=== PATIENT | female | born 1950 ===

== ENCOUNTER 2022-11-17 05:22 | Emergency (ER) | payer MEDICARE, SELFPAY ==
[2022-11-17 05:30] VITALS: BP 177/102; PULSE 70; RESP 16; TEMP 36.6; O2SAT 100; BMI 25.8
[2022-11-17 05:45] VITALS: BP 171/94; PULSE 74; RESP 16; TEMP 37; O2SAT 97
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
--- NOTE | 2022-11-17 06:14 | PC.NURSE ---
swelling observed on L ankle CMS pos/intact, pedal pulses normal, warm to touch pt denies any numbness/tingling
--- NOTE | 2022-11-17 06:17 | ED.LOWEXIN ---
HPI - Extremity Injury (Lower) General Chief Complaint: Fall Stated Complaint: Foot injury Time Seen by Provider: 11/17/22 05:43 Source: patient Mode of arrival: ambulatory History of Present Illness HPI Narrative: 72-year-old female who states that she was walking in [employer] yesterday morning and slipped resulting in a twisting of her left ankle that she has some difficulty walking on all day yesterday, she did attempt to elevate and apply ice but states this morning she went to come in to have it further evaluated. Related Data Allergies Allergy/AdvReac Type Severity Reaction Status Date / Time No Known Allergies Allergy Unverified 01/28/20 15:15 Review of Systems Review of Systems: Pertinent positives and negatives as stated in HPI [facility] Past Medical History Source: nursing notes reviewed Social History Social History Alcohol intake: never Smoked in Last 30 Days: No Use of substances other than those prescribed or required for medical reasons: No Advance Directives: No Advance Directives Information Provided: No Physical Exam Vital Signs: Vital Signs: Last Vital Signs Temp 98.6 F 11/17/22 05:45 Pulse 74 11/17/22 05:45 Resp 16 11/17/22 05:45 BP 171/94 H 11/17/22 05:45 Pulse Ox 97 11/17/22 05:45 O2 Del Method Room Air 11/17/22 05:45 BMI result Body Mass Index 25.8 VITAL SIGNS: Reviewed. GENERAL: Well developed, well nourished, in no acute distress. HEAD: Normocephalic/atraumatic EYES: PERRLA, EOMI LUNGS: Normal breath sounds. No adventitious sounds or accessory muscle use. SpO2<97> CARDIOVASCULAR: Regular rate and rhythm without noted murmurs ABDOMEN: Soft, non-tender, non-distended with bowel sounds. MUSCULOSKELETAL: No tenderness, deformities, or effusions noted on gross inspection. EXTREMITIES: No cyanosis, clubbing or edema; LEFT ANKLE: There is no deformity, scant edema, no midfoot tenderness, no medial malleolus tenderness to palpation, minimal tenderness to palpation over lateral malleolus otherwise neurovascular is intact SKIN: Inspection of the skin reveals no rashes NEUROLOGIC: Alert and oriented x 4. Strength and sensation to light touch were grossly intact x 4. Medical Decision Making Medical Decision Making [facility] Narrative: 72-year-old female with history and clinical presentation molar consistent with ankle sprain then fracture or dislocation, this was further corroborated by x-ray results which are negative for fracture or dislocation. Patient received combination analgesics, the left ankle was stabilized with an Silviano wrap and patient was discharged home. Differential Diagnosis Please see the discussion above Radiology Impression Radiologist Impression: No fracture, otherwise my interpretation is in agreement with radiology's impression. Discharge Plan Discharge Clinical Impression: Ankle sprain Patient Disposition: Home, Self-Care Instructions: Ankle Sprain (ED), R.I.C.E. Treatment (ED) Additional Instructions: 1. Follow-up with your primary care provider for re-evaluation. I recommend [id number] Tylenol/ibuprofen as needed for pain control. Apply ice to unexposed skin for 10-15 minutes, 3 to 4 times a day as possible. Return to the ER for any worsening symptoms.
--- NOTE | 2022-11-17 06:30 | PC.NURSE ---
ice pack applied to L ankle/foot for 15 minutes
--- NOTE | 2022-11-17 06:34 | PC.NURSE ---
michael bandage applied to L foot/ankle per provider's orders
--- NOTE | 2022-11-17 06:37 | PC.NURSE ---
Discharge instructions given and explained to pt No apparent distress aox4 All of pt's questions answered Ambulates safely and independently
== END 2022-11-17 06:38 | disposition home or self-care (01) ==
PROVIDERS: Emergency Provider Student in an Organized Health Care Education/Training Program; PCP Family Medicine
DX: S93.402A Sprain of unspecified ligament of left ankle, initial encounter (principal); X50.1XXA Overexertion from prolonged static or awkward postures, initial encounter; Y93.89 Activity, other specified; Y92.512 Supermarket, store or market as the place of occurrence of the external cause; Y99.9 Unspecified external cause status
CPT/HCPCS: 73610; 73620; 99283; 99284

== ENCOUNTER 2022-12-21 15:26 | Emergency (ER) | payer OTHER, SELFPAY ==
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
[2022-12-21 16:42] VITALS: BP 166/101; PULSE 74; RESP 16; TEMP 37; O2SAT 98; BMI 24.0
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
== END 2022-12-21 18:26 | disposition home or self-care (01) ==
PROVIDERS: Emergency Provider Emergency Medicine; PCP Family Medicine
DX: S06.0X0A Concussion without loss of consciousness, initial encounter (principal); S13.4XXA Sprain of ligaments of cervical spine, initial encounter; V43.52XA Car driver injured in collision with other type car in traffic accident, initial encounter; Y93.89 Activity, other specified; Y92.481 Parking lot as the place of occurrence of the external cause; Y99.9 Unspecified external cause status
CPT/HCPCS: 72040; 99282; 99283

== ENCOUNTER → 2023-01-23 09:05 | Outpatient (BNVA) | payer SELFPAY | PROVIDERS: PCP Family Medicine; Visit Provider Physician Assistant ==

== ENCOUNTER 2023-10-05 17:43 | Emergency (ER) | payer OTHER, SELFPAY ==
--- NOTE | ~2023-10-05 | XR_ITS ---
History: Pain. Exams: Left foot 2 views left ankle 3 views FINDINGS: Comparison made to baseline 11/17/2022. Mild degeneration the first metatarsophalangeal joint. No erosions. No soft tissue calcifications. Monckeberg calcification suggesting diabetes. No evidence of any neuropathic arthropathy. No periosteal formation. Ankle mortise anatomic. Subtalar joint intact. No calcaneal plantar spurs spurring. Midfoot articulations preserved. XR/XR ankle LT min 3V IMPRESSION: Mild degenerative changes first metatarsophalangeal joint. No evidence of any neuropathic arthropathy. No fracture
--- NOTE | ~2023-10-05 | XR_ITS ---
History: Pain. Exams: Left foot 2 views left ankle 3 views FINDINGS: Comparison made to baseline 11/17/2022. Mild degeneration the first metatarsophalangeal joint. No erosions. No soft tissue calcifications. Monckeberg calcification suggesting diabetes. No evidence of any neuropathic arthropathy. No periosteal formation. Ankle mortise anatomic. Subtalar joint intact. No calcaneal plantar spurs spurring. Midfoot articulations preserved. XR/XR foot LT min 3V IMPRESSION: Mild degenerative changes first metatarsophalangeal joint. No evidence of any neuropathic arthropathy. No fracture
[2023-10-05 17:50] VITALS: BP 141/95; PULSE 87; RESP 20; TEMP 36.8; O2SAT 98; BMI 23.9
--- NOTE | 2023-10-05 17:50 | ED_ITS ---
HPI - Extremity Injury (Lower) General Chief Complaint: Extremity Injury, Lower Stated Complaint: ankle inj, [place] Related Data Previous Rx's ?Medication ?Instructions ?Recorded cyclobenzaprine 10 mg tablet 10 mg PO BEDTIME PRN muscle spasm 12/21/22 #7 tabs lidocaine 5 % topical patch 1 patch topical DAILY PRN pain #15 12/21/22 ea naproxen 500 mg tablet 500 mg PO BID #14 tabs 12/21/22 Allergies Allergy/AdvReac Type Severity Reaction Status Date / Time No Known Allergies Allergy Verified 10/06/23 00:18 [facility] Social History Social History Alcohol intake: never Advance Directives: No Advance Directives Information Provided: No Do you have a plan to hurt others: No Plan Physical Exam Vital Signs: Vital Signs: Last Vital Signs Temp 97.3 F 10/05/23 20:12 Pulse 70 10/05/23 20:12 Resp 14 10/05/23 20:12 BP 154/86 H 10/05/23 20:12 Pulse Ox 99 10/05/23 20:12 O2 Del Method Room Air 10/05/23 20:12 BMI result Body Mass Index 23.9 Course Course Course Narrative: This is an RME: Additional HPI, ROS, PE not included below will be deferred to primary provider. RME assessment and note performed by: Araceli Howe PA-C This is a [id number]-female presenting to the ER with complaints of left ankle/foot pain since today. Reporting she accidentally injured herself after slip and fall. Reporting ankle and foot pain. Plan: xrays ordered Reevaluation(s) Reevaluation #1: Patient left without completing treatment. Medications Administered Discontinued Medications Generic Name Dose Route Start Last Admin Trade Name Freq PRN Reason Stop Dose Admin Acetaminophen 650 mg 10/05/23 20:14 10/05/23 20:16 Acetaminophen 325 Mg Tablet PO 10/05/23 20:15 650 mg ONCE ONE Administration Discharge Plan Discharge Clinical Impression: Ankle pain Patient Disposition: Left W/O Completing Treatment Prescriptions: No Action cyclobenzaprine 10 mg tablet 10 mg PO BEDTIME PRN (Reason: muscle spasm) Qty: 7 0RF naproxen 500 mg tablet 500 mg PO BID Qty: 14 0RF lidocaine 5 % adhesive patch,medicated 1 patch topical DAILY PRN (Reason: pain) Qty: 15 0RF Rx Instructions: leave on most painful area for up to 12 hrs Discharge Date/Time: 10/05/23 22:43
[2023-10-05 20:12] VITALS: BP 154/86; PULSE 70; RESP 14; TEMP 36.3; O2SAT 99
[2023-10-05] MEDS: Acetaminophen 325 MG TABLET 650 MG PO (20:16)
== END 2023-10-05 22:43 | disposition left against medical advice (07) ==
PROVIDERS: Emergency Provider Emergency Medicine; PCP Family Medicine
DX: M25.572 Pain in left ankle and joints of left foot (principal); Z53.21 Procedure and treatment not carried out due to patient leaving prior to being seen by health care provider
CPT/HCPCS: 73610; 73630; 99282; 99283

== ENCOUNTER 2023-10-06 00:04 | Emergency (ER) | payer OTHER, SELFPAY ==
[2023-10-06 00:16] VITALS: BP 148/91; PULSE 76; RESP 14; TEMP 36.4; O2SAT 99; BMI 24.1
--- NOTE | 2023-10-06 08:17 | ED_ITS ---
HPI - Extremity Injury (Lower) General Chief Complaint: Extremity Injury, Lower Stated Complaint: results for xray on ankle Time Seen by Provider: 10/06/23 08:07 Source: patient Mode of arrival: ambulatory History of Present Illness ED Provider: Dr Dean HPI Narrative: 73-year-old female reports [place] and describes pain as 9/10. Related Data Previous Rx's ?Medication ?Instructions ?Recorded cyclobenzaprine 10 mg tablet 10 mg PO BEDTIME PRN muscle spasm 12/21/22 #7 tabs lidocaine 5 % topical patch 1 patch topical DAILY PRN pain #15 12/21/22 ea naproxen 500 mg tablet 500 mg PO BID #14 tabs 12/21/22 Allergies Allergy/AdvReac Type Severity Reaction Status Date / Time No Known Allergies Allergy Verified 10/06/23 00:18 Review of Systems Review of Systems: Pertinent positives and negatives as stated in [facility] Past Medical History Source: nursing notes reviewed Social History Social History Alcohol intake: never Advance Directives: No Advance Directives Information Provided: No Do you have a plan to hurt others: No Plan Physical Exam Vital Signs: Vital Signs: Last Vital Signs Temp 97.6 F 10/06/23 00:16 Pulse 76 10/06/23 00:16 Resp 14 10/06/23 00:16 BP 148/91 H 10/06/23 00:16 Pulse Ox 99 10/06/23 00:16 O2 Del Method Room Air 10/06/23 00:16 BMI result Body Mass Index 24.1 VITAL SIGNS: Reviewed. GENERAL: Well developed, well nourished, in no acute distress. HEAD: Normocephalic/atraumatic EYES: PERRLA, EOMI LUNGS: Normal breath sounds. No adventitious sounds or accessory muscle use. SpO2<99> CARDIOVASCULAR: Regular rate and rhythm without noted murmurs ABDOMEN: Soft, non-tender, non-distended with bowel sounds. MUSCULOSKELETAL: No tenderness, deformities, or effusions noted on gross inspection. EXTREMITIES: No cyanosis, clubbing or edema. LEFT ANKLE/FOOT: No appreciable swelling noted. SKIN: Inspection of the skin reveals no rashes NEUROLOGIC: Alert and oriented x 4. Strength and sensation to light touch were grossly intact x 4. Medical Decision Making Medical Decision Making [facility] Narrative: 73-year-old female with history and clinical presentation, DDX: Fracture, dislocation, sprain I reviewed images and there is no evidence of fracture or dislocation, Silviano wrap was applied, and is well controlled at this time and patient was discharged. Differential Diagnosis Differential Diagnoses: The differential diagnosis associated with the present ation includes Please see the discussion above Admission/Observation Consideration of admission/observation: Escalation of care including admission/observation considered Please see the discussion above Radiology Impression Discussion of test interpretation with radiology: I have reviewed the radiologist's reading. Radiologist Impression: Please see the discussion above Discharge Plan Discharge Clinical Impression: Ankle sprain and strain Patient Disposition: Home, Self-Care Instructions: Ankle Sprain (ED), How to Use an Elastic Bandage (ED), R.I.C.E. Treatment (ED) Additional Instructions: Recommend [id number] Tylenol/ibuprofen as needed for pain control. Prescriptions: No Action cyclobenzaprine 10 mg tablet 10 mg PO BEDTIME PRN (Reason: muscle spasm) Qty: 7 0RF naproxen 500 mg tablet 500 mg PO BID Qty: 14 0RF lidocaine 5 % adhesive patch,medicated 1 patch topical DAILY PRN (Reason: pain) Qty: 15 0RF Rx Instructions: leave on most painful area for up to 12 hrs Interventions: ED Discharge Assessment Last Done: 10/06/23 08:35 Print Language: Cuban
[2023-10-06 08:35] VITALS: BP 148/91; PULSE 76; RESP 14; TEMP 36.4; O2SAT 99
== END 2023-10-06 08:36 | disposition home or self-care (01) ==
LOC: HO.ED 08:17
PROVIDERS: Emergency Provider Student in an Organized Health Care Education/Training Program
DX: S93.402A Sprain of unspecified ligament of left ankle, initial encounter (principal); S96.912A Strain of unspecified muscle and tendon at ankle and foot level, left foot, initial encounter; X50.1XXA Overexertion from prolonged static or awkward postures, initial encounter; Y93.9 Activity, unspecified; Y92.59 Other trade areas as the place of occurrence of the external cause; Y99.9 Unspecified external cause status
CPT/HCPCS: 99282

== ENCOUNTER 2024-06-24 11:00 | Outpatient (REF) | payer OTHER, SELFPAY ==
--- OUTSIDE RECORDS SUMMARY | 2024-06-24 12:51 | XMS_ITS | Encounter Summary ---
Author Organization [employer] Address [address] [place] [address] Care Team Providers Care Multimedia Authoring Specialist Name Role Phone Arlene Cronin MD Primary Care Provider [phone] Encounter Details Date Type Department Care Team (Late st Contact Info) Description 06/24/2024 9:45 AM EST Office Visit [facility] [address] [place], [place] [phone] Arlene Cronin MD [address] [place], [place] [id number] Primary hypertension (Primary Dx); External hemorrhoids; Tubular adenoma of colon; Strain of neck muscle, sequela; Vitamin D deficiency; Dyslipidemia Social History Tobacco Use Types Packs/Day Years Used Date Smoking Tobacco: Every Day Cigarettes Passive Smoke Exposure: Current Smokeless Tobacco: Never Depression Answer Date Recorded Patient Health Questionnaire-9 Score 0 06/24/2024 Patient Health Questionnaire-9 Score 0 06/24/2024 Last PHQ-9: Questionnaire Data Not on file 0 06/24/2024 Housing Stability Answer Date Recorded What is your housing situation today? I have terrence ballard 07/23/[address] you li ve. Do you have problems with any of the following? None of the above 07/23/2023 Food Insecurity Answer Date Recorded Within the past 12 months, y ou worried that your food would run out before you got money to buy more: Never True 07/23/2023 Within the past 12 months,th e food you bought just didn't last and you didn't have enough money to get more: Never True 04/2024 Transportation Answer Date Recorded In the past 12 months, has l ack of transportation kept you from medical appts, meetings, work or from getting things needed for daily living? No 07/23/2023 Utilities Answer Date Recorded In the past 12 months, has t he electric, gas, oil or water company threatened to shut off services in your home? No 07/23/2023 Depression Answer Date Recorded Patient Health Questionnaire-2 Score 0 06/24/2024 Internet Access Answer Date Recorded Internet Access Q1 No 06/11/2024 Internet Access Q2 I do not want or need it 05/15 Comments Unknown Sex and Gender Information Value Date Recorded Sex Assigned at Female 03/12/2022 10:16 AM EDT Legal Sex Female 10:16 AM EDT Gender Identity Female 03/12/2022 10:16 AM EDT Sexual Orientation Straight 03/12/2022 10 :16 AM EDT documented as of this encounter Last Filed Vital Signs Vital Sign Reading Time Taken Comments Blood Pressure 150/90 06/24/2024 10:38 AM EST Pulse 78 06/24/2024 10:17 AM EST Temperature 36.2 ??C (97.1 ??F) 06/24/2024 1 0:17 AM EST Respiratory Rate 15 06/24/2024 10:1 7 AM EST Oxygen Saturation 99% 06/24/2024 10: 17 AM EST Inhaled Oxygen Concentration - - Weight 68.9 kg (151 lb 12.8 oz) 025 10:17 AM EST Height - - Body Mass Index 25.26 07/31/2023 9:16 AM EDT documented in this encounter Miscellaneous Notes * Assessment & Plan Note - Arlene Cronin MD - 06/23/2024 12:46 PM ESTAssociated Problem(s): Health care maintenance - physical exam with PCP on Cancer screening: - colon - breast - cervix Bone health - DEXA Dental Vision Hearing Driving HCP / MOLST documented in this encounter Plan of Treatment Not on file documented as of this encounter Visit Diagnoses Diagnosis Primary hypertension- Primary Unspecified essential hypertension External hemorrhoids External hemorrhoids without mention of complication Tubular adenoma of colon Benign neoplasm of colon Strain of neck muscle, sequela Vitamin D deficiency Dyslipidemia Other and unspecified hyperlipidemia documented in this encounter Additional Health Concerns Assessment Noted Time PHQ-9 Depression Total Score: 0 06/24/19 25 10:16 AM EST documented as of this encounter Care Teams Multimedia Authoring Specialist Relationship Specialty Start Date End Date Arlene Cronin MD [address] [place] [address] PCP - General Family Medicine 05/13/18 documented as of this encounter
--- OUTSIDE RECORDS SUMMARY | 2024-06-24 12:51 | XMS_ITS | Encounter Summary ---
Author Organization [employer] Address [address] [facility] 7t [place] [address] Care Team Providers Care Beading Installer Name Role Phone Arlene Cronin MD Primary Care Provider [phone] Reason for Visit * Reason Onset Date Comments chart prep 06/18/2024 Encounter Details Date Type Department Care Team ([facility] st Contact Info) Description 06/18/2024 Telephone [facility] MEDICINE [address] [place] [address] Ely Dumont MA chart prep Social History Tobacco Use Types Packs/Day Years Used Date Smoking Tobacco: Every Day Cigarettes Passive Smoke Exposure: Current Smokeless Tobacco: Never Housing Stability Answer Date Recorded What is your housing situation today? I have terrencemeagan ballard 07/23/[address] you [...] Answer Date Recorded Patient Health Questionnaire-2 Score 2 06/12/2022 Internet Access Answer Date Recorded Internet Access [...] AM EDT documented as of this encounter Miscellaneous Notes * Telephone Encounter - Ely Dumont MA - 06/18/2024 2:48 PM EST .Chart Prep Labs: 07/31/23 lab not done Images: not applicable Vaccines due: Covid Due, Tdap Due, Flu Due, and Shingles in pharmacy Due Referrals: Orthopedics requested Screenings: Colonoscopy Overdue care gaps: Sbirt, PHQ-9, and lon-7 documented in this encounter Plan of Treatment Not on file documented as of this encounter Visit Diagnoses Not on filedocumented in this encounter Care Teams Beading Installer Relationship Specialty Start Date End Date Arlene Cronin MD [address] [place] [address] PCP - General Family Medicine 05/13/18 documented as of this encounter
--- OUTSIDE RECORDS SUMMARY | 2024-06-24 12:51 | XMS_ITS | Encounter Summary ---
Author Organization [employer] Address [address] [facility] [address] 7t [place] [address] Care Team Providers Care Assistant Designer Name Role Phone Arlene Cronin MD Primary Care Provider Encounter Details Date Type Department Care Team (Latest Contact Info) Description 06/24/2024 Travel Social History Tobacco Use Types Packs/Day Years [...] AM EDT documented as of this encounter Plan of Treatment Not on file documented as of this encounter Visit Diagnoses Not on filedocumented in this encounter Additional Health Concerns Assessment Noted Time PHQ-9 Depression Total Score: 0 06/24/19 25 10:16 AM EST documented as of this encounter Care Teams Assistant Designer Relationship Specialty Start Date End Date Arlene Cronin MD [address] [place] [address] PCP - General Family Medicine 05/13/18 documented as of this encounter
--- OUTSIDE RECORDS SUMMARY | 2024-06-24 12:51 | XMS_ITS | Encounter Summary ---
Author Organization [employer] Address [address] [place] [address] 7t [place] [address] Care Team Providers Care International Recruiter Name Role Phone Arlene Cronin MD Primary Care Provider [phone] Reason for Referral * Consultation (Routine) - Closed Specialty Diagnoses / Procedures Referred By Apoorva kwan Referred To Contact Orthopaedic Surgery Diagnoses Closed fracture of left foot, sequela Arlene Cronin MD [address] [place] [address] Phone: tel: fax: [facility] [address] [place] [address] [place] [address] Phone: tel: fax: Referral ID Status Reason Start Date Expiration Date V isits Requested Visits Authorized [id number] Closed Specialty Services Required 06/05/2024 06/05/2025 1 1 Encounter Details Date Type Department Care Team (Late st Contact Info) Description 06/05/2024 Orders Only [facility] MEDICINE [address] [place], [place] [phone] Arlene Cronin MD [address] [place], [place] [phone] Closed fracture of left foot, sequela (Primary Dx) Social History Tobacco Use Types Packs/Day Years [...] Recorded Patient Health Questionnaire-2 Score 2 06/12/2022 Comments Unknown Sex and Gender Information Value Date Recorded Sex Assigned at Female 03/12/2022 10:16 AM EDT Legal Sex Female 10:16 AM EDT Gender Identity Female 03/12/2022 10:16 AM EDT Sexual Orientation Straight 03/12/2022 10 :16 AM EDT documented as of this encounter Plan of Treatment Scheduled Referrals Name Type Priority Associated Diagnoses Order Schedule Referral to Orthopaedic Surgery Outpatient Referral Routine Closed fracture of left foot, sequela Expected: 06/05/2024 (Approximate), Expires: 06/05/2025 documented as of this encounter Visit Diagnoses Diagnosis Closed fracture of left foot, sequela- Primary documented in this encounter Care Teams International Recruiter Relationship Specialty Start Date End Date Arlene Cronin MD [address] [place] [address] PCP - General Family Medicine 05/13/18 documented as of this encounter
--- OUTSIDE RECORDS SUMMARY | 2024-06-24 12:51 | XMS_ITS | Encounter Summary ---
Author Organization [employer] Address [address] [facility] 7t [place] [address] Care Team Providers Care Slp Teacher Name Role Phone Arlene Cronin MD Primary Care Provider [phone] Reason for Visit * Reason Comments Pre-visit Planning SDOH Screening negat pieter and Tobacco screening negative Encounter Details Date Type Department Care Team ([facility] st Contact Info) Description 06/11/2024 Patient Outreach [facility] MEDICINE [address] [place], [place] [phone] Arlene Cronin MD [address] [place], [place] [phone] Pre-visit Planning (SDOH Screening negative and Tobacco screening negative) Social History Tobacco Use Types Packs/Day Years [...] AM EDT documented as of this encounter Progress Notes * Mildred Soto - 06/11/2024 9:47 AM EST SIMONE Mchugh placed successful outbound call to patient for pre-visit planning. Patient name and confirmed. Patient confirms appt date and time, and has transportation arrangements. Biggest concern for appointment at this time is no concerns. Patient advised to bring to appointment a photo id and insurance card. Appropriate screenings completed in anticipation of appointment. documented in this encounter Plan of Treatment Not on file documented as of this encounter Visit Diagnoses Not on filedocumented in this encounter Care Teams Slp Teacher Relationship Specialty Start Date End Date Arlene Cronin MD [address] [place] [address] PCP - General Family Medicine 05/13/18 documented as of this encounter
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
--- OUTSIDE RECORDS SUMMARY | 2024-06-24 12:51 | XMS_ITS | Patient Health Record ---
Author Organization [facility] Address [address] [place] [address] Care Team Providers Care Instrumentation Engineering Technician Name Role Phone Roseanne CARMEN, Arlene Primary Care Provider Romel Gan Jr Unavailable REASON FOR REFERRAL No Information MEDICATIONS Medication SIG (Take, Route, Frequency, Duration) Notes Start Date End Date Status Colyte with Flavor Packs 240 GM As direc aldo Orally Over the specified time. for 1 day(s) 01/21/2019 Active Aspir-81 81 MG Orally Activ e hydroCHLOROthiazide 25 MG 1 capsule in t he morning Orally Once a day Active IMMUNIZATIONS Vaccine Route Administration Date Status Comme nts Influenza Unknown 01/21/2019 Refused SOCIAL HISTORY Sex Assigned At : Social History Observation Description Sex Assigned At Unknown PROBLEMS Problem Type ICD Code Onset Dates Problem Status W/U Status Risk SNOMED Code Notes Problem Rectal bleeding (569.3) Active confirmed Rectal bleeding (38049748) Problem Constipation, unspecified constipation type (K59.00) Active confirmed 05796936 Problem Colon cancer screening (Z12.11) Active confirmed 778222082 Problem Long-term use of aspirin therapy (Z79.82) Active confirmed 939991991 PLAN OF TREATMENT Future Test Test Name Order Date COLONOSCOPY 12/11/2013 COLONOSCOPY 01/21/2019 Next Appt Details Provider Name:Swapnil Valencia , 07/16/2024 09:00:00 AM, [address], [address], [place], [address], Insurance Providers Payer Name Payer Address Payer Phone Subscriber Number Group Number Insured Name Patient Relationship to Insured Coverage Start Date Coverage End Date [facility] [address] [address] [place] [address] [id number] CHENCHO MCMILLAN Self - patient is the insured MEDICAL (GENERAL) HISTORY Medical History History ICD Code colon polyps, last colonoscopy 04/02/14 hypertension back pain Rectal bleeding arthritis Surgical History Surgery Date(Month/Year)
--- OUTSIDE RECORDS SUMMARY | 2024-06-24 12:52 | XMS_ITS | Encounter Summary ---
Author Organization [employer] Address [address] [place] [address] 7t [place] [address] Care Team Providers Care Junior Engineer Name Role Phone Arlene Cronin MD Primary Care Provider [phone] Encounter Details Date Type Department Care Team (Late st Contact Info) Description 01/25/2023 Orders Only [facility] MEDICINE [address] [place] [address] Arlene Cronin MD [address] [place], [place] [phone] Injury of left ankle, sequela (Primary Dx) Social History Tobacco Use Types Packs/Day Years Used Date Smoking Tobacco: Every Day Cigarettes Passive Smoke Exposure: Current Smokeless Tobacco: Never Depression Answer Date Recorded Patient Health Questionnaire-2 [...] as of this encounter Visit Diagnoses Diagnosis Injury of left ankle, sequela- Primary documented in this encounter Care Teams Junior Engineer Relationship Specialty Start Date End Date Arlene Cronin MD [address] [place], [place] [phone] PCP - General Family Medicine 05/13/18 documented as of this encounter
--- OUTSIDE RECORDS SUMMARY | 2024-06-24 12:52 | XMS_ITS | Encounter Summary ---
Author Organization [employer] Address [address] [place] [address] 7t [place] [address] Care Team Providers Care Retail Planner Name Role Phone Arlene Cronin MD Primary Care Provider [phone] Encounter Details Date Type Department Care Team (Late st Contact Info) Description 12/26/2022 Orders Only [facility] MEDICINE [address] [place], [place] [phone] Arlene Cronin MD [address] [place], [place] [phone] Neck pain (Primary Dx); Chronic back pain, unspecified back location, unspecified back pain laterality Social History Tobacco Use Types Packs/Day Years [...] as of this encounter Visit Diagnoses Diagnosis Neck pain- Primary Cervicalgia Chronic back pain, unspecified back location, unspecified back pain laterality documented in this encounter Care Teams Retail Planner Relationship Specialty Start Date End Date Arlene Cronin MD [address] [place], [place] [phone] PCP - General Family Medicine 05/13/18 documented as of this encounter
--- OUTSIDE RECORDS SUMMARY | 2024-06-24 12:52 | XMS_ITS | Continuity of Care Document ---
Author Organization [place] - [facility], MARIELOS [address] 1st Floor Address [address] [place] [address] Assessment No assessment recorded. Plan of Treatment Reminders Order Date Submit Date Provider Last Modified By Organization Details Last Modified Time Details Appointments RECHECK 15 2024 09:00A Jenna Rogers PA-C Not available Not available Not available Lab None recorded . Referral None recorded . Procedures None recorded . Surgeries None recorded . Imaging XR, ankle, 3 or more view [address] [place] [address] Office, [address], [address], [place], [address], 06/17/2024 11:43:25 Medication Orders lidocain e 5 % topical patch 2024 [id number], [address] [place], [place], [phone], 06/17/2024 11:43:25 Patient TargetsNo targets recorded. Patient InstructionsNo instructions recorded. Reason for Referral None Reported. Results Created Date Observation Date Name Description Value Unit Range Abnormal Flag Note LastModifiedBy Organization Detail LastModifiedTime 06/17/1906/17/2024 XR, ankle , 3 or more view http:/ [email or web address] ?Encry pted=s hAaTro YD8dLq bEUv6g %2BXZw aYqtaq 0bqfl% 2Fg9IQ a4ajBk vP9nXo QUaueC m3YtLR FvZlgJ JJ8mAn HZtai3 4h7947 AC0Kqb HmBUKW jKiQtr MwF INTERFACE [facility] Office [address] [facility] [address], [place], [address], 06/17/2024 09:14:49 06/17/1906/17/2024 XR, ankle , 3 or more view [email or web address] ?Encry pted=s hAaTro YD8dLq bEUv6g %2BXZw aYqtaq 0bqfl% 2Fg9IQ a4ajBk vP9nXo QUaueC m3YtLR FvZlgJ JJ8mAn HZtai3 2l2115 AC0Kqb HmBUKW jKiQtr MwF INTERFACE [facility] Office [address] [facility] [address], [place], [address], 06/17/2024 09:14:51 Result Notes None recorded. Problems Name Problem SNOMED Code Status Onset Date Resolution Date Notes Provider Name and Address Organization Details Recorded Time No complaints 301957515 Active Status : 'A'; Not Available [facility] 09:15:23 Problem Notes None recorded. Medical Equipment None Reported. Allergies No known drug allergies Medications Name Sig Start Date Stop Date Status Note LastModified by Organization Details LastModified Time cyclobenzaprin e 10 mg tablet TAKE 1 TABLET BY MOUTH AT BEDTIME NEEDED FOR MUSCLE SPASM active Not Available Not Available No t Available meloxicam 15 mg tablet TAKE 1 TABLET BY MOUTH EVERY DAY NEEDED active Not Available Not Available No t Available simvastatin 20 mg tablet active Not Available Not Available No t Available lidocaine 5 % topical patch active Not Available Not Availabl e Not Available amoxicillin 250 mg capsule TAKE 1 CAPSULE BY MOUTH FOUR TIMES DAILY active Not Available Not Available No t Available hydrochlorothi azide 25 mg tablet active Not Available Not Available Not Available naproxen 500 mg tablet TAKE 1 TABLET BY MOUTH TWICE DAILY active Not Available Not Available No t Available chlorhexidine gluconate 0.12 % mouthwash RINSE WITH 15ML BY MOUTH FOR 30 SECONDS THEN SPIT USE TWICE DAILY AFTER BRUSHING AND FLOSSING active Not Available Not Available No t Available Vitals Date Recorded Body height Body mass index (BMI) Body weight Provider Name and Address Organization Details Last Updated DateTime 06/17/2024 165.1 cm 24.5 kg/m2 46063.08 g MAYELIN IBANEZ [facility] 06/17/2024 09:03:15 Social History Question Answer Notes LastModified by Organizat ion Details LastModified Time Tobacco Smoking Status Never Smoker ELVIRA WATERMAN rohith [place] - [place] [facility] 11/08/2023 08:39:09 What Is Your Level Of Alcohol Consumption? None Information not available 11/08/2023 What Is Your Relationship Status? Single Information not available 11/08/2023 Do You Use Any Illicit Or Recreational Drugs? No Information not available 11/08/2023 Do You Or Have You Ever Used Any Other Forms Of Tobacco Or Nicotine? No Information not available 11/08/2023 Sex: Unknown Functional Status None recorded. Mental Status None recorded. Family History Nothing Reported. Medical History Condition Response Coronary Artery Disease N Anxiety/Depression N Emphysema N COPD N Pacemaker N Vascular Disease N Heart Trouble N Gastrointestinal Disease N Autoimmune disease N Orthotics N Arthritis N Blood Clot N Acid Reflux (GERD) N Cancer N Stroke N Circulation Problems N Rheumatoid Arthritis N Arrhythmia N Headaches N Fibromyalgia N Allergies/Hayfever N Breathing or lung disorders N Nerve Disorders N Thyroid Problems N Kidney/Bladder Problems N Anemia N Heart Attack ([place]) N Cholesterol N Diabetes N Bleeding Disorder N Seizures/Epilepsy N AIDS/HIV N Congestive Heart Failure (CHF) N Asthma N Peripheral Vascular Disease N Sleep Apnea N Hepatitis N Heart Disease N Pulmonary Embolism N Hypertension N Osteoporosis N Gynecological HistoryNo gynecological history recorded. Obstetrics History GPAL:G 0 P 0 0 0 0 Past Encounters Encounter ID Performer Location Encounter Start Date Encounter Closed Date Diagnosis/Indication Diagnosis SNOMED-CT Code Diagnosis ICD10 Code Diagnosis Note [id number] MIGUEL [place] 1[address] [place] [address] 06/17/2024 08:54:42 06/17/2024 12:01:32 Ankle pain 756464056 M25.572 Fracture o f distal end of fibula 177424508 S82.891A Health Concerns Section Related Observation LastModified by Organization Elizabeth curtis LastModified Time None Recorded Concern Status LastModified by Organization Details LastModified Time None Recorded Payers Encounter Date Sequence Insurance Name Policy Number Policy Campos Covered Member ID Campos Member ID Guarantor Name 06/17/2024 1 [facility] (MEDICARE REPLACEMENT/A DVANTAGE - HMO) Qi Candelario [id number] Qi Candelario 06/17/2024 2 [place] [facility] Qi Candelario [id number] Qi Candelario Notes Date Note Type Note Provider Name and Address Organization Details Recorded Time 06/17/2024 text/html I am seeing this patient under the supervision of Dr. John, who was available but who did not see the patient. HPI: Patient is a 75-year-old female presenting today in regards to left ankle pain. Previously seen by myself after sustaining a left ankle sprain in July. She was doing well until 10/06/23. [place] at the mall on a strawberry milkshake. She twisted her ankle. She had immediate pain and swelling. Was doing well until this injury. Previously worked with physical therapy and feels that her ankle was getting much better. She was last seen by Marleni Hodge on 01/14/24. Presents today for follow-up. She continues to have pain and swelling about the lateral aspect of the ankle. She completed a course of physical therapy. She has been working on physical therapy exercises on her own at home. She continues to have pain with prolonged walking and standing. Denies any interval trauma. Denies any fevers, chills, or paresthesias. PFMSH, Meds and ROS reviewed, updated and signed by me, and is located in the patient's chart.PHYSICAL EXAMINATION: The patient is well appearing and in no apparent distress. Alert and oriented x 3. Examination of her left ankle reveals mild edema about the lateral ankle with no evidence of erythema or warmth. Tender to palpation over the tip of the fibula and ATFL. Nontender to palpation of elsewhere about the foot or ankle. Tolerates ankle range of motion. Calf soft, nontender. Sensation intact light touch in the left lower extremity. RADIOLOGY: X-rays were ordered, obtained, and reviewed today in our office. 3 views of the left ankle reveal possible small nondisplaced distal fibula avulsion fracture which appears healed on x-ray. IMPRESSION: Left distal fibula avulsion fracture versus ankle sprain PLAN: Discussed the findings and situation with the patient today. We discussed continued conservative treatment versus surgical intervention. Patient would like to remain conservative for now. She will continue with her ankle brace. She was given a prescription for lidocaine patches. Follow up in 4-6 weeks. Call with questions or concerns. Brigette Rogers PA-C [address] [facility] [address], [place], [address], [facility] - [place] [facility] 06/17/2024 12:01:31 OBGyn Episode No OBEpisode recorded.
--- OUTSIDE RECORDS SUMMARY | 2024-06-24 12:52 | XMS_ITS | Encounter Summary ---
Author Organization [employer] Address [address] [place] [address] [address] [place] [address] Care Team Providers Care Air Quality Engineer Name Role Phone Arlene Cronin MD Primary Care Provider [phone] Encounter Details Date Type Department Care Team (Late st Contact Info) Description 11/29/2022 Orders Only [facility] [address] [place] [address] Arlene Cronin MD [address] [place], [place] [phone] Social History Tobacco Use Types Packs/Day Years [...] on filedocumented in this encounter Care Teams Air Quality Engineer Relationship Specialty Start Date End Date Arlene Cronin MD [address] [place], [place] [phone] PCP - General Family Medicine 05/13/18 documented as of this encounter
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
--- OUTSIDE RECORDS SUMMARY | 2024-06-24 12:52 | XMS_ITS | Encounter Summary ---
Author Organization [employer] Address [address] [place] [address] [address] [place] [address] Care Team Providers Care Pipe Organ Mechanic Apprentice Name Role Phone Arlene Cronin MD Primary Care Provider [phone] Reason for Visit * Reason Onset Date Comments Referral 01/23/2023 Encounter Details Date Type Department Care Team ([facility] st Contact Info) Description 01/23/2023 Telephone [facility] [address] [place], [place] [phone] Arlene Cornin MD [address] [place], [place] [phone] Referral Social History Tobacco Use Types Packs/Day [...] encounter Miscellaneous Notes * Telephone Encounter - Rosa Coyle RN - 01/24/2023 10:52 AM EDT [facility] sent script to [facility] rehab due to the fact that [facility] does not take her insurance. * Telephone Encounter - Cora Dumont - 01/23/2023 10:30 AM EDT Tc from pt requesting for new physical therapy referral to [facility] on injury to left ankle. Location: [place] [address] [id number], [facility] [address] Date: n/a Time: n/a Fax: n/a Specialty: physical therapy documented in this encounter Plan of Treatment Not on file documented as of this encounter Visit Diagnoses Not on filedocumented in this encounter Care Teams Pipe Organ Mechanic Apprentice Relationship Specialty Start Date End Date Arlene Cronin MD [address] [place] [address] PCP - General Family Medicine 05/13/18 documented as of this encounter
[2024-06-24 14:47] LABS: Alanine Aminotransferase 13 U/L (0-31); Albumin Level 4.3 g/dL (3.5-5.0); Alkaline Phosphatase 69 U/L (39-117); Anion Gap 12 (12-20); Aspartate Amino Transferase 25 U/L (5-31); Bilirubin Total 0.6 mg/dL (0.0-1.0); Blood Urea Nitrogen 14 mg/dL (9-16); Carbon Dioxide 27 mmol/L (22-29); Chloride 106 mmol/L (96-108); Cholesterol 264 mg/dL (<200); Estimated Glomerular Filt Rate > 60; Glucose Random 85 mg/dL (60-115); HDL Cholesterol 69 mg/dL (>40); LDL Cholesterol Calculated 178 mg/dL (<100); Potassium 3.6 mmol/L (3.3-5.1); Sodium 141 mmol/L (135-145); Total Protein 8.2 g/dL (6.5-8.0); Triglycerides 85 mg/dL (<150)
[2024-06-24 14:49] LABS: TSH reflex Free T4 1.01 uIU/mL (0.32-4.0)
[2024-06-24 21:01] LABS: Reflex LDLD? No
== END 2024-06-24 11:01 | disposition home or self-care (01) ==
LOC: HO.HHCL 11:00
PROVIDERS: Visit Provider Family Medicine
DX: I10 Essential (primary) hypertension (principal); E78.5 Hyperlipidemia, unspecified
CPT/HCPCS: 36415; 80053; 80061; 84443

== ENCOUNTER 2024-08-11 09:11 | Outpatient (REF) | payer OTHER, SELFPAY ==
--- NOTE | ~2024-08-11 | MM_ITS ---
EXAMINATION: DXA BONE DENSITY AXIAL HISTORY: Estrogen deficiency TECHNIQUE: OneAway Dual energy absorptiometry (DEXA) of the lumbar spine, total left hip, and femoral neck was performed. COMPARISON: There is an is made with the prior examination dated 07/05/2008. FINDINGS: The bone mineral density of the lumbar spine is 0.871 with a T-score of -2.6, and a Z-score of -1.6. This is indicative of osteoporosis. This represents a BMD change of -12.6% compared to the prior exam. This is statistically significant. The bone mineral density of the left total hip is 0.679 with a T-score of -2.6, and a Z-score of -2.0. This is indicative of osteoporosis. This represents a BMD change of -17.8% compared to the prior exam. This is statistically significant. The bone mineral density of the left femoral neck is 0.625 with a T-score of -3.0, and a Z-score of -2.1. This is indicative of osteoporosis. This represents a BMD change of -21.9% compared to the prior exam. FRACTURE RISK: The FRAX index suggests a ten year probability of major osteoporotic fracture of 9.2%, and of hip fracture 3.2%. MM/XR DEXA axial skeleton IMPRESSION: Based on bone mineral density, and according to World Health Organization (WHO) criteria, the diagnosis is consistent with osteoporosis. All bone density values are in grams per centimeter squared (g/cm2). Statistically, 68% of repeat scans fall within 1 SD (+/- 0.010 g/cm2 for AP spine L1-L4) and 1 SD (+/- 0.012 g/cm2 for femur total) FRAX is a trademark of the [employer] [place] [employer] Metabolic Bone Disease, a World Health Organization (WHO) Collaborating Center. Electronically signed by: Swapnil Milton MD 08/11/2024 10:11 AM EDT
--- OUTSIDE RECORDS SUMMARY | 2024-08-11 10:11 | XMS_ITS | Encounter Summary ---
Author Organization [employer] Address [address] [place] [address] [address]t [place] [address] Care Team Providers Care Tariff Counsel Name Role Phone Arlene Cronin MD Primary Care Provider Encounter Details Date Type Department Care Team (Late st Contact Info) Description 01/25/2023 Orders Only [facility] [address] [place] [address] Arlene Cronin MD [address] [place], [place] [phone] Injury of left ankle, sequela (Primary Dx) [...] Primary documented in this encounter Care Teams Tariff Counsel Relationship Specialty Start Date End Date Arlene Cronin MD [address] [place], [place] [phone] PCP - General Family Medicine 05/13/18 documented as of this encounter
--- OUTSIDE RECORDS SUMMARY | 2024-08-11 10:11 | XMS_ITS | Encounter Summary ---
Author Organization [employer] Address [address] [place] [address] [address]t [place] [address] Care Team Providers Care Development Geologist Name Role Phone Arlene Cronin MD Primary Care Provider [phone] Encounter Details Date Type Department Care Team (Late st Contact Info) Description 11/29/2022 Orders Only [facility] [address] [place] [address] Arlene Cronin MD [address] [place], [place] [phone] Social History Tobacco Use Types Packs/Day Years [...] on filedocumented in this encounter Care Teams Development Geologist Relationship Specialty Start Date End Date Arlene Cronin MD [address] [place], [place] [phone] PCP - General Family Medicine 05/13/18 documented as of this encounter
--- OUTSIDE RECORDS SUMMARY | 2024-08-11 10:11 | XMS_ITS | Encounter Summary ---
Author Organization [employer] Address [address] [place] [address] 7t [place] [address] Care Team Providers Care Scheduling Analyst Name Role Phone Arlene Cronin MD Primary Care Provider [phone] Reason for Visit * Reason Onset Date Comments Referral 01/23/2023 Encounter Details Date Type Department Care Team (Late st Contact Info) Description 01/23/2023 Telephone [facility] MEDICINE [address] [place], [place] [phone] Arlene Cronin MD [address] [place], [place] [phone] Referral Social History Tobacco Use Types Packs/Day [...] 10:52 AM EDT DORIS sent script to [facility] rehab due to the fact that DORIS does not take her insurance. * Telephone Encounter - Cora Dumont - 01/23/2023 10:30 AM EDT Tc from pt requesting for new physical therapy referral to [facility] on injury to left ankle. Location: [place] [address] [id number], [facility] [address] Date: n/a Time: n/a Fax: n/a Specialty: physical therapy documented in this encounter Plan of Treatment Not on file documented as of this encounter Visit Diagnoses Not on filedocumented in this encounter Care Teams Scheduling Analyst Relationship Specialty Start Date End Date Arlene Cronin MD [address] [place] [address] PCP - General Family Medicine 05/13/18 documented as of this encounter
--- OUTSIDE RECORDS SUMMARY | 2024-08-11 10:11 | XMS_ITS | Encounter Summary ---
Author Organization [employer] Address [address] [place] [address] 7t [place] [address] Care Team Providers Care Petal Shaper Hand Name Role Phone Arlene Cronin MD Primary Care Provider [phone] Encounter Details Date Type Department Care Team (Late st Contact Info) Description 12/26/2022 Orders Only [facility] MEDICINE [address] [place], [place] [phone] Arlene Cronin MD [address] [place], [place] [phone] Neck pain (Primary Dx); Chronic back pain, [...] laterality documented in this encounter Care Teams Petal Shaper Hand Relationship Specialty Start Date End Date Arlene Cronin MD [address] [place], [place] [phone] PCP - General Family Medicine 05/13/18 documented as of this encounter
--- OUTSIDE RECORDS SUMMARY | 2024-08-11 10:11 | XMS_ITS ---
Author Organization [facility] Address [address] [place] [address] Care Team Providers Care Detective Sergeant Name Role Phone Roseanne CARMEN, Arlene Primary Care Provider Romel Gan Jr Unavailable [phone] Swapnil Valencia Unavailable [phone] Allergies No Known Allergies REASON FOR VISIT Patient presents today for a recall colonoscopy Medications Medication SIG (Take, Route, Frequency, Duration) Notes Start Date End Date Status hydroCHLOROthiazide 25 MG 1 capsule in t he morning Orally Once a day Not-Taking Problems Problem Type SNOMED Code ICD Code Onset Dates Problem Status W/U Status Risk Notes Problem History of polyp of colon (situation) (221850104) Personal history of colonic polyps (Z86.010) Active confirmed Problem Preprocedural examination (645396964510290) Preprocedural examination (Z01.818) Active confirmed Vital Signs Blood pressure systolic 120 mm Hg 07/17/19 25 Blood pressure diastolic 66 mm Hg 025 Height 65 in 07/16/2024 Weight 149 lbs 07/16/2024 BMI 24.79 kg/m2 07/16/2024 Procedures Procedure Date Ordered Date Performed Result Body Sit e COLONOSCOPY 07/16/2024 N/A Encounters Encounter Location Date Provider Diagnosis [facility] [address] [place] [address] 07/16/2024 Swapnil Valencia Personal history of colonic polyps Z86.010 ; Preprocedural examination Z01.818 and Colon cancer screening Z12.11 Assessments Encounter Date Diagnosis (ICD Code) Assessment Notes Treatment Notes Treatment Clinical Notes Section Notes 07/16/2024 Personal history of colonic polyps (ICD-10 - Z86.010) Overall, Qi appears quite well. Given her age, good clinical appearance, previous history of: polyps, and her last colonoscopy being over 5 years ago, I did recommend a follow up colonoscopy for further screening purposes We did review the rationale for that in regard to colon cancer prevention Full consent has been obtained from her for this, including risks of bleeding and perforation The procedure will be done with monitored anesthesia care She was given the below instructions regarding medication adjustment The colonoscopy will be done by Dr Reynolds at Qi's request, as she is quite comfortable with him. and he has done her previous examinations Qi was comfortable with this plan Thank you again for allowing me to participate in Qi xie. I shall continue to keep you advised of her progress. 07/16/2024 Preprocedural examination (ICD-10 - Z01.818) Overall, Qi appears quite well. Given her age, good clinical appearance, previous history of: polyps, and her last colonoscopy being over 5 years ago, I did recommend a follow up colonoscopy for further screening purposes We did review the rationale for that in regard to colon cancer prevention Full consent has been obtained from her for this, including risks of bleeding and perforation The procedure will be done with monitored anesthesia care She was given the below instructions regarding medication adjustment The colonoscopy will be done by Dr Reynolds at Qi's request, as she is quite comfortable with him. and he has done her previous examinations Qi was comfortable with this plan Thank you again for allowing me to participate in Qi xie. I shall continue to keep you advised of her progress. 07/16/2024 Colon cancer screening (ICD-10 - Z12.11) Overall, Qi appears quite well. Given her age, good clinical appearance, previous history of: polyps, and her last colonoscopy being over 5 years ago, I did recommend a follow up colonoscopy for further screening purposes We did review the rationale for that in regard to colon cancer prevention Full consent has been obtained from her for this, including risks of bleeding and perforation The procedure will be done with monitored anesthesia care She was given the below instructions regarding medication adjustment The colonoscopy will be done by Dr Reynolds at Qi's request, as she is quite comfortable with him. and he has done her previous examinations Qi was comfortable with this plan Thank you again for allowing me to participate in Qi xie. I shall continue to keep you advised of her progress. Plan Of Treatment Pending Test Test Name Order Date COLONOSCOPY 07/16/2024 Next Appt Details Provider Name:Romel zaldivar , 08/14/2024 09:10:00 AM, [address] [facility] , [place], [place], [id number], Progress Notes * ADELIA MCMILLANOB:1950 ( 74 yo F)Acc No.[id number]:07/16/2024 Progress Notes Patient:?QI MCMILLAN Provider:?Swapnil Valencia MD :1950???Age:74 Y???Sex:Female D ate:07/16/2024 Address:[address] [place] [address] , [facility] Pcp:Arlene Cronin MD Subjective: * Chief Complaints: * ???Patient presents today fo r a recall colonoscopy * HPI: ???incontinence:? I saw Qi in the office today for evaluation of her personal history of: polyps and need for colorectal cancer screening. Qi is usually followed by Dr Reynolds with periodic colonoscopies for a previous history of colon polyps. She last underwent a colonoscopy in 2019 with removal of a hyperplastic polyp. She presently feels very well and denies any change in bowel habits or signs of bleeding. She enjoys a good appetite and denies any significant heartburn nor dysphagia. She denies any abdominal pain, jaundice, nor any unintentional weight loss. * ROS:?General/Constitutional:?Change in appetite?denies.?Fatigue?denies.?ENT:?Patient denies?difficulty swallowing.?Respiratory:?Patient denies?shortness of breath.?Cardiovascular:?Patient denies?chest pain.?Gastrointestinal:?Comments?See HPI for details.?Genitourinary:?Difficulty urinating?denies.?Incontinence?denies.?Musculoskeletal:?Patient denies?muscle aches.?Skin:?Patient denies?pruritis .?Neurologic:?Patient denies?low back pain.?Psychiatric:?Patient denies?mental or physical abuse.? * Medical History:? * Surgical History:?No Surgica l History documented. * Hospitalization/Major Diagno stic Procedure:?No Hospitalization History. * Family History:?Father: dece ased, diagnosed with Diabetes, HTN (hypertension).?Mother: , diagnosed with Diabetes, HTN (hypertension).?Siblings: , diagnosed with Colon cancer.? * Social History:?Tobacco Use:?Tobacco Use/Smoking?Are you a: nonsmoker.?Miscellaneous:?Marital status: Single. Occupation: ACTIVITY LEADER-unemployed at present. * Medications:?Not-Taking/PRNh ydroCHLOROthiazide 25 MG Tablet 1 capsule in the morning Orally Once a day Not-Taking/PRN hydroCHLOROthiazide 25 MG Tablet 1 capsule in the morning Orally Once a day DiscontinuedAspir-81 81 MG Tablet Delayed Release Orally Colyte with Flavor Packs 240 GM Solution Reconstituted As directed Orally Over the specified time. Medication List reviewed and reconciled with the patientDiscontinued Aspir-81 81 MG Tablet Delayed Release Orally Discontinued Colyte with Flavor Packs 240 GM Solution Reconstituted As directed Orally Over the specified time. Medication List reviewed and reconciled with the patient * Allergies:?N.K.D.A.yes[Aller gies Verified] Objective: * Vitals:?Wt: 149 lbs, Ht: 65 in, BMI: 24.79 Index, BP: 120/66 mm Hg, Wt-k.59. * Examination: ???General Examination: ?GENERAL APPEARANCE:?in no acute distress.?HEAD:?normocephalic.?EYES:?sclera non-icteric.?ORAL CAVITY:?mucosa moist.?NECK/THYROID:?no lymphadenopathy.?SKIN:?anicteric.?HEART:?S1, S2 normal, no murmurs.?LUNGS:?clear to auscultation bilaterally.?CHEST:?normal shape and expansion.?ABDOMEN:?soft, nontender, nondistended, bowel sounds present, no organomegaly .?EXTREMITIES:?no clubbing, cyanosis, or edema.?PSYCH:?cognitive function intact.? Assessment: * Assessment: 1.?Preprocedural examination - Z01.818 (Primary)???2.?Personal history of colonic polyps - Z86.010???3.?Colon cancer screening - Z12.11??? Overall, Qi appears quit e well. Given her age, good clinical appearance, previous history of: polyps, and her last colonoscopy being over 5 years ago, I did recommend a follow up colonoscopy for further screening purposes We did review the rationale for that in regard to colon cancer prevention Full consent has been obtained from her for this, including risks of bleeding and perforation The procedure will be done with monitored anesthesia care She was given the below instructions regarding medication adjustment The colonoscopy will be done by Dr Reynolds at Qi's request, as she is quite comfortable with him. and he has done her previous examinations Qi was comfortable with this plan Thank you again for allowing me to participate in Qi xie. I shall continue to keep you advised of her progress. Plan: * Treatment: 2.?Colon cancer screening?Procedure: COLONOSCOPY* with Elida not take any Hydr ochlorothiaizide the day before or on the day of the colonoscopy.sched for 08/14/24 at 9:[address] Monet * Procedure Codes:?3017F COLOR ECTAL CA SCREEN DOC [id number] TOBACCO [id number] BP SCR NOT PRFRM REC REASON NOS * Preventive Medicine:? ??Urinary Incontinence:?Urinary Incontinence?Assessment:?Absent,?Plan of care documented:?No, reason not specified.? ??Screenings:?Fall Risk Screening?Fall Risk Assessment:?No falls in the past year,?Screening:?No falls in the past year,?Assessment:?Not performed, no reason specified,?Plan of Care:?Not documented, no reason specified.? * * Sign off status: Completed true * Provider:?Swapnil Valencia MD Date:? 025 Generated for Melly rhoades/Sabine/Amando on:?08/11/2024 10:11 AM EDT History and Physical Notes * Examination Category Sub-Category Detail Notes Category Not es General Examination GENERAL APPEARANCE: in no acute di stress HEAD: normocephalic EYES: sclera non-icteric NECK/THYROID: no lymphadenopathy HEART: S1, S2 normal, no mu rmurs CHEST: normal shape and exp ansion LUNGS: clear to auscultatio n bilaterally ABDOMEN: soft, nontender, non distended, bowel sounds present, no organomegaly SKIN: anicteric EXTREMITIES: no clubbing, cyanosi s, or edema PSYCH: cognitive function i ntact ORAL CAVITY: mucosa moist
--- OUTSIDE RECORDS SUMMARY | 2024-08-11 10:11 | XMS_ITS | Encounter Summary ---
Author Organization [employer] Address [address] [place] [address] 7t [place] [address] Care Team Providers Care Weave Room Supervisor Name Role Phone Arlene Cronin MD Primary Care Provider [phone] Reason for Referral * Consultation (Routine) - Closed Specialty Diagnoses / Procedures Referred By Apoorva kwan Referred To Contact Orthopaedic Surgery Diagnoses Closed fracture of left foot, sequela Arlene Cronin MD [address] [place] [address] Phone: tel: fax: [facility] [address] [place] [address] [place] [address] Phone: tel: fax: Referral ID Status Reason Start Date Expiration Date V isits Requested Visits Authorized [id number] Closed Specialty Services Required 06/05/2024 06/05/2025 1 1 Encounter Details Date Type Department Care Team (Late st Contact Info) Description 06/05/2024 Orders Only [facility] MEDICINE [address] [place], [place] [phone] Arlene Cronin MD [address] [place], [place] [phone] Closed fracture of left foot, sequela (Primary [...] Primary documented in this encounter Care Teams Weave Room Supervisor Relationship Specialty Start Date End Date Arlene Cronin MD [address] [place] [address] PCP - General Family Medicine 05/13/18 documented as of this encounter
--- OUTSIDE RECORDS SUMMARY | 2024-08-11 10:11 | XMS_ITS | Encounter Summary ---
Author Organization [employer] Address [address] [facility] 7t [place] [address] Care Team Providers Care Plow And Boring Machine Tender Name Role Phone Arlene Cronin MD Primary Care Provider [phone] Reason for Visit * Reason Onset Date Comments Referral 05/29/2024 Encounter Details Date Type Department Care Team ([facility] st Contact Info) Description 05/29/2024 Telephone [facility] MEDICINE 230 [place], [place] [phone] Arlene Cronin MD 230 [place], [place] [phone] Referral Social History Tobacco Use Types Packs/Day [...] Miscellaneous Notes * Telephone Encounter - Arlene Cronin MD - 06/05/2024 9:48 AM EST Referral done * Telephone Encounter - Naomi Carter RN - 05/29/2024 3:21 PM EST Telephone call to pt to clarify request for referral below for left foot. Pt states that she injured her left foot back in 09/2023 and went to [facility], no fracture at the time but [...] agreement with plan. * Telephone Encounter - Marisa Tirado - 05/29/2024 2:11 PM EST TC from pt requesting new referral : DATE: 06/17/24 TIME: 9AM Address: [address], [place] [address] Visits: not provided Facility Name: [facility] Type of Specialist: Orthopedic DX: Left foot fracture Phone # : [phone] If any questions contact pt at [phone] documented in this encounter Plan of Treatment Not on file documented as of this encounter Visit Diagnoses Not on filedocumented in this encounter Care Teams Plow And Boring Machine Tender Relationship Specialty Start Date End Date Arlene Cronin MD [address] [place] [address] PCP - General Family Medicine 05/13/18 documented as of this encounter
--- OUTSIDE RECORDS SUMMARY | 2024-08-11 10:11 | XMS_ITS | Patient Health Record ---
Author Organization [facility] Address [address] [place] [address] Care Team Providers Care Scrap Kettle Tender Name Role Phone Roseanne CARMEN, Arlene Primary Care Provider Romel Gan Jr Unavailable [phone] Swapnil Valencia Unavailable [phone] Allergies No Known Allergies Reason For Referral No Information Medications Medication SIG (Take, Route, Frequency, Duration) Notes Start Date End Date Status hydroCHLOROthiazide 25 MG 1 capsule in t he morning Orally Once a day Not-Taking Immunizations Vaccine Route Administration Date Status Comme nts Influenza Unknown 01/21/2019 Refused Problems Problem Type SNOMED Code ICD Code Onset Dates Problem Status W/U Status Risk Notes Problem Rectal bleeding (51831045) Rectal bleeding (569.3) Active confirmed Problem 421937812 Colon cancer screening (Z12.11) Active confirmed Problem History of polyp of colon (situation) (606536502) Personal history of colonic polyps (Z86.010) Active confirmed Problem Preprocedural examination (160084572748736) Preprocedural examination (Z01.818) Active confirmed Problem 065230362 Long-term use of aspirin therapy (Z79.82) Active confirmed Problem 80380481 Constipation, unspecified constipation type (K59.00) Active confirmed Vital Signs Blood pressure diastolic 66 mm Hg 07/16/2024 Height 65 in 07/16/2024 Blood pressure systolic 120 mm Hg 07/16/2024 Weight 149 lbs 07/16/2024 BMI 24.79 kg/m2 07/16/2024 Procedures Procedure Date Ordered Date Performed Result Body Sit e COLONOSCOPY 07/16/2024 N/A Encounters Encounter Location Date Provider Diagnosis [facility] [address] [place] [address] 07/16/2024 Swapnil Valencia Personal history of colonic [...] for allowing me to participate in Qi care. I shall continue to keep you advised [...] for allowing me to participate in Qi care. I shall continue to keep you advised [...] Test Test Name Order Date COLONOSCOPY 07/16/2024 Future Test Test Name Order Date COLONOSCOPY 12/11/2013 COLONOSCOPY 01/21/2019 Next Appt Details Provider Name:Romel zaldivar Jr, 08/14/2024 09:10:00 AM, [address] [place] [address] , [place], [place], [phone], Insurance Providers Payer Name Payer Address Payer Phone Subscriber Number Group Number Insured Name Patient Relationship to Insured Coverage Start Date Coverage End Date [facility] [address] [address] [place] [phone] [id number] QI MCMILLAN Self - patient is the insured Medical (General) History Medical History History ICD Code Colon polyps with tubular ad enoma removed in 2005. Colonoscopies in 2010, 2013, and in 2018 were negative for adenomas Hypertension Back pain Arthritis Surgical History Surgery Date(Month/Year)
--- OUTSIDE RECORDS SUMMARY | 2024-08-11 10:11 | XMS_ITS ---
Author Name Macy Frank NP Address [address] [place] [address] Phone [phone] [facility] Care Team Providers Care Bottoming Machine Operator Name Role Phone Macy Frank Unavailable [phone] Unavailable Unavailable Unavailable Reason for Referral Not [...] Active 2023-01 N/A [facility] other [facility] care Active 2024-03-04 N/A Encounters Encounters Type Facility Date of Service Diagnosis/Co mplaint New patient,40-59min; chronic exacerbation, 2 stable chronic or 1 acute illness add add modifier 95 for video (do not use for phone, instead use 16093-09) [facility] [place] Essential (primary) hypertensionHyperlipidemia, unspecifiedOther problems related to medical facilities and other health carePersonal history of other (healed) physical injury and trauma New patient,40-59min; chronic exacerbation, 2 stable chronic or 1 acute illness add add modifier 95 for video (do not use for phone, instead use 18961-37) [facility] ([place]) 03[place]04[place]2024 New patient,40-59min; chronic exacerbation, 2 stable chronic or 1 acute illness add add modifier 95 for video (do not use for phone, instead use 24214-19) [facility] [place] 03[place]04/2024 New patient,40-59min; chronic exacerbation, 2 stable chronic or 1 acute illness add add modifier 95 for video (do not use for phone, instead use 81639-89) [facility] [place] 03[place]04/20[place] New patient,40-59min; chronic exacerbation, 2 stable chronic or 1 acute illness add add modifier 95 for video (do not use for phone, instead use 54011-26) [facility] [place] 03[place]04[place]20[place] New patient,40-59min; chronic exacerbation, 2 stable chronic or 1 acute illness add add modifier 95 for video (do not use for phone, instead use 69666-55) [facility] [place] 03[place]04/2024 New patient,40-59min; chronic exacerbation, 2 stable chronic or 1 acute illness add add modifier 95 for video (do not use for phone, instead use 64624-80) [facility] [place] 03[place]04/2024 New patient,40-59min; chronic exacerbation, 2 stable chronic or 1 acute illness add add modifier 95 for video (do not use for phone, instead use 55884-20) [facility] [place] 03[place]04/2024 New patient,40-59min; chronic exacerbation, 2 stable chronic or 1 acute illness add add modifier 95 for video (do not use for phone, instead use 34468-37) [facility] ([place] 03/04/2024 New patient,40-59min; chronic exacerbation, 2 stable chronic or 1 acute illness add add modifier 95 for video (do not use for phone, instead use 63491-08) [facility], ([place]) 03/04/2024 Vital Signs Date of Collection Vitals 2024-03-04 07:56:08 Height - 165.1 cmWei ght - 70.31 kgBody Mass Index (BMI) - 25.79 kg/m2BP Diastolic - 70.0 mm[Hg]BP Systolic - 125.0 mm[Hg]Pain Scale - 4.0 {score} Social History Social History Social History Observation Description Effec tive Time Current Smoking Status Never smoker 1 Sex Female History of Procedures Procedures Service Procedure code Service date Servicing provider Phone# New patient,40-59min; chronic exacerbation, 2 stable chronic or 1 acute illness add add modifier 95 for video (do not use for phone, instead use 51129-22) [address] 2024-03-04 No Data Available No Data Availa [...] and other health carePAIN CONTINGENCY PLANLast updated: 03/04/2024[facility] to call for the following symptoms: Decreased [...] and other health carePAIN CONTINGENCY PLANLast updated: 03/04/2024[facility] to call for the following symptoms: Decreased [...]
--- OUTSIDE RECORDS SUMMARY | 2024-08-11 10:12 | XMS_ITS | Data Portability ---
Author Organization [facility], [address] Address [address] [place] [address] Assessment No assessment recorded. Plan of Treatment Reminders Order Date Submit Date Provider Last Modified By Organization Details Last Modified Time Details Appointments None recorded . Lab None recorded . Referral orthoped ic surgeon referral 2022 023 [facility] (Eren Peguero), [address] [facility] [place], [address], 09:02:41 Procedures None recorded . Surgeries None recorded . Imaging None recorded . Medication Orders None recorded . Patient TargetsNo targets recorded. Patient Instructions Encounter Date Encounter Id Patient Instructions Last Modified By Organization Details Last Modified Time 11/20/2022 [id number] learning about rice (rest, ice, compression, and elevation) [email or web address] Not available 11/20/2022 08:37:37 ankle sprain: care instructions [email or web address] Not available 11/20/2022 08:40:31 ankle sprain education [email or web address] Not available 11/20/2022 08:40:31 learning about how to use crutches [email or web address] Not available 11/20/2022 08:40:46 Use the crutches with no weight bearing for 3-4 days then gradually try to weight bear with the crutches as tolerated. Try to wean yourself off the crutches in 2 weeks. Elevated your foot as much as possible. Use the splint that was provided by [facility] when ambulating. See printed instructions. Over the counter tylenol may be taken per package instructions for pain if needed. An orthopedic referral has been made for you. Call [facility] for an appointment as soon as possible. Seek Emergency Medical evaluation for any worsening symptoms. [email or web address] Not available 11/20/2022 08:40:31 Reason for Referral Orthopedic Surgeon Referral for Sprain of left ankle left ankle injury with pain and swelling. Negative xray done at [facility] Referring Physician: Greer Trivedi, Urgent Care, Encounter Date: 11/20/2022 Problems Name Problem SNOMED Code Status Onset Date Resolution Date Notes Provider Name and Address Organization Details Recorded Time Hypercholestero lemia [id number] Active Michelle newberry PA - [facility] 08:17:33 Problem Notes None recorded. Medical Equipment None Reported. Allergies No known drug allergies Vitals Date Recorded Body height Body mass index (BMI) Body weight Pain severity - 0-10 verbal numeric rating [Score] - Reported Respiratory rate Oxygen saturation Oxygen saturation in Arterial blood by Pulse oximetry Heart rate Body temperature Systolic blood pressure Diastolic blood pressure Provider Name and Address Organization Details Last Updated DateTime 3 165.1 cm 25.8 kg/m2 87947.8 2 g 10 16 /min 100 % 100 % 65 /min 97.8 [degF] 155 mm[Hg] 95 mm[Hg] Michelle Soto PA - [facility] 08:20:33 Social History Question Answer Notes LastModified by [employer] ion Details LastModified Time Tobacco Smoking Status Never Smoker Michelle newberry PA - [facility] 11/20/2022 08:18:04 What Is Your Level Of Alcohol Consumption? None Information not available 11/20/2022 Have You Had Direct Contact, Or Contact During Intimacy, With Monkeypox Rash, Scabs, Or Body Fluids From A Person With Monkeypox? No Information not available 11/20/2022 Do You Use Any Illicit Or Recreational Drugs? No Information not available 11/20/2022 Have You Recently Traveled Abroad? No Information not available 11/20/2022 Sex: Unknown Functional Status None recorded. Mental Status None recorded. Family History Relationship Description Onset Age of this Age Resolved Age Notes LastModified by Organization Details LastModified Time Father No current problems or disability [email or web address] Not available 11/20 08:17:56 Mother No current problems or disability [email or web address] Not available 11/20 08:17:56 Medical History No medical history recorded. Gynecological HistoryNo gynecological history recorded. Obstetrics History GPAL:G 0 P 0 0 0 0 Past Encounters Encounter ID Performer Location Encounter Start Date Encounter Closed Date Diagnosis/Indication Diagnosis SNOMED-CT Code Diagnosis ICD10 Code Diagnosis Note [id number] [address] [place] [address] [phone] [id number] 10/26/2019 09:45:34 10/26/2019 10:49:21 [id number] [address] [place] [address] [id number] 06/02/2019 08:57:09 06/02/2019 09:41:24 [id number] [address] [place] [address] [id number] 0 07/19/2018 13:10:26 07/19/2018 13:52:36 [id number] Greer Trivedi MD [address] [place] [address] [id number] 11/20/2022 08:04:19 11/20/2022 08:52:46 Sprain of left ankle [id number] S93.402A Health Concerns Section Related Observation LastModified by Organization Detai ls LastModified Time None Recorded Concern Status LastModified by Organization Details LastModified Time None Recorded Advance Directives Directive None Recorded Payers Encounter Date Sequence Insurance Name Policy Number Policy Campos Covered Member ID Campos Member ID Guarantor Name 10/26/2019 2 [facility] OPT[facility] (MEDICAID HMO) Qi Candelario [id number] Qi Candelario 11/20/2022 1 [facility] (MEDICARE REPLACEMENT/A DVANTAGE - HMO) Qi Candelario [id number] Qi Candelario Notes Date Note Type Note Provider Name and Address Organization Details Recorded Time 3 text/html Foot/Ankle UCReported bypatient.source of patient informationInformation obtained from patient; Patient arrived at Urgent Care ambulatory Location:left; ankle Probleminjury; swelling Severity:moderate Duration:4 days Context:twisting Associated Symptoms:no weakness; no numbness; no tingling; no redness; no warmth; no ecchymosis;swelling Aggravating factors:extension; flexion; standing; walking Alleviating factors:elevation; rest Assistive devicesGiven ankle splint at [facility]. Previous InjuryNo prior injury to affected body part Previous Treatmentnone Prior Imaging:noneNotes:72 year old female presenting for evaluation of left ankle pain and swelling after an injury sustained at [facility] 4 days ago. She apparently slipped on some oil that was on the floor and everted her ankle. She was seen the next day at the [facility] and reports she had xrays that were negative for any fracture. The patient was given an ankle splint and told to follow-up with her PCP. The patient has had continued pain and swelling and contacted her PCP who recommended she come to Urgent Care for a referral to ortho or for PT. No numbness or weakness of the extremity but the pain is worse with movement, palpation and weight bearing. She denies other injuries. Greer Trivedi MD [address] [place], [address], PA - [facility] 11/20/2022 08:49:11 OBGyn Episode No OBEpisode recorded.
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
--- OUTSIDE RECORDS SUMMARY | 2024-08-11 10:12 | XMS_ITS | Data Portability ---
Author Organization [facility], [facility] Address [address] [place] [address] Assessment No assessment recorded. Plan of Treatment Reminders Order Date Submit Date Provider Last Modified By Organization Details Last Modified Time Details Appointments RECHECK 15 2024 09:00A Jenna Rogers PA-C Not available Not available Not available Lab None recorded . Referral physical therapis t referral 2023 024 [email or web address] Not available 12/11/2023 15:11:10 Procedures None recorded . Surgeries None recorded . Imaging XR, ankle, 3 or more view 2024 025 [email or web address] [facility], [address], [address], [place], [address], 06/25/2024 15:45:24 XR, ankle, 3 or more view - recheck pt 3 views left ankle wb rm 116 2023 024 [email or web address] [facility], [address], [address], [place], [address], 02/04/2024 11:41:00 XR, foot, 3 or more view 2023 024 [email or web address] [facility], [address], [address], [place], [address], 12/11/2023 15:11:10 XR, ankle, 3 or more view 2023 024 [email or web address] [facility], [address], [address], [place], [address], 12/11/2023 15:11:10 XR, ankle, 3 or more view - recheck left ankle room 109 2023 024 [email or web address] [facility], [address], [address], [place], [address], 11/28/2023 09:34:16 Medication Orders lidocain e 5 % topical patch 2024 025 esar [id number], [address], [place], [id number], 06/17/2024 11:43:25 Patient TargetsNo targets recorded. Patient InstructionsNo instructions recorded. Reason for Referral Physical Therapist Referral for Fracture of distal end of fibula Referring Physician: Brigette Rgoers, Orthopedic Surgery, Encounter Date: 11/22/2023 Results Created Date Observation Date Name Description Value Unit Range Abnormal Flag Note LastModifiedBy Organization Detail LastModifiedTime 11/08/19 24 11/08/2023 XR, ankle , 3 or more view [email or web address] ?Encry pted=s hAaTro YD8dLq bEUv6g %2BXZw aYqtaq 0bqfl% 2Fg9IQ a4ajBk vP9nXo QUaueC m3YtLR FvZlgJ JJ8mAn HZtai3 8e5831 AC0Kpa nWGUqX eUC8mr 84%3D INTERFACE [facility] [address], [place], [address], 11/08/2023 08:53:53 11/08/19 24 11/08/2023 XR, ankle , 3 or more view [email or web address] ?Encry pted=s hAaTro YD8dLq bEUv6g %2BXZw aYqtaq 0bqfl% 2Fg9IQ a4ajBk vP9nXo QUaueC m3YtLR FvZlgJ JJ8mAn HZtai3 9u5067 AC0Kpa nWGUqX eUC8mr 84%3D INTERFACE [facility] [address], [place], [address], 11/08/2023 08:53:55 11/22/19 24 11/22/2023 XR, foot, 3 or more view [email or web address] ?Encry pted=s hAaTro YD8dLq bEUv6g %2BXZw aYqtaq 0bqfl% 2Fg9IQ a4ajBk vP9nXo QUaueC m3YtLR FvZl JJ8Greenbrier HZtai3 6w7740 AC0Kpb HyGUaf eUC8mr 84%3D INTERFACE [facility] [address], [place], [address], 11/22/2023 13:46:07 11/22/19 24 11/22/2023 XR, foot, 3 or more view [email or web address] ?Encry pted=s hAaTro YD8dLq bEUv6g %2BXZw aYqtaq 0bqfl% 2Fg9IQ a4ajBk vP9nXo QUaueC m3YtLR FvZl JJ8mAn HZtai3 6o0896 AC0Kpb HyGUaf eUC8mr 84%3D INTERFACE [facility] [address], [place], [address], 11/22/2023 13:46:09 11/22/19 24 11/22/2023 XR, ankle , 3 or more view [email or web address] ?Encry pted=s hAaTro YD8dLq bEUv6g %2BXZw aYqtaq 0bqfl% 2Fg9IQ a4ajBk vP9nXo QUaueC m3YtLR FvZl JJ8mAn HZtai3 7o1041 AC0Kpb HyBVqX eUC8mr 84%3D INTERFACE [facility] [address], [place], [address], 11/22/2023 14:02:13 11/22/19 24 11/22/2023 XR, ankle , 3 or more view [email or web address]:/ [email or web address] ?Encry pted=s hAaTro YD8dLq bEUv6g %2BXZw aYqtaq 0bqfl% 2Fg9IQ a4ajBk vP9nXo QUaueC m3YtLR FvZl28 [address]tai3 8t0596 AC0Kpb HyBVqX eUC8mr 84%3D INTERFACE [facility] [address], [place], [address], 11/22/2023 14:02:15 01/11/20 24 06/26/2023 imagi ng/di agnos tic resul t No observ ation record ed. [email or web address] Not Available 12/13 00:12:50 01/14/20 24 01/14/2024 XR, ankle , 3 or more view [email or web address]:/ [email or web address] ?Encry pted=s hAaTro YD8dLq bEUv6g %2BXZw aYqtaq 0bqfl% 2Fg9IQ a4ajBk vP9nXo QUaueC m3YtLR [facility] 0i6601 AC0KrY 3SEVKq jKiQtr MwF INTERFACE [facility] [address], [place], [address], 01/14/2024 10:09:02 01/14/20 24 01/14/2024 XR, ankle , 3 or more view [email or web address]:/ [email or web address] ?Encry pted=s hAaTro YD8dLq bEUv6g %2BXZw aYqtaq 0bqfl% 2Fg9IQ a4ajBk vP9nXo QUaueC m3YtLR FvZl28 [address] Streettai3 4h9458 AC0KrY 3SEVKq jKiQtr MwF INTERFACE [facility] [address] [facility] [address], [place], [address], 01/14/2024 10:09:04 06/17/19 25 06/17/2024 XR, ankle , 3 or more view [email or web address]:/ [email or web address] ?Encry pted=s hAaTro YD8dLq bEUv6g %2BXZw aYqtaq 0bqfl% 2Fg9IQ a4ajBk vP9nXo QUaueC m3YtLR FvZlgJ JJ8[place]brier HZtai3 0z9762 AC0Kqb HmBUKW jKiQtr MwF INTERFACE [facility] [address] [facility]tag[facility]in [facility] [address], [place], [address], 06/17/2024 09:14:49 06/17/19 25 06/17/2024 XR, ankle , 3 or more view [email or web address] ?Encry pted=s hAaTro YD8dLq bEUv6g %2BXZw aYqtaq 0bqfl% 2Fg9IQ a4ajBk vP9nXo QUaueC m3YtLR FvZlgJ JJ8mAn HZtai3 7x5963 AC0Kqb HmBUKW jKiQtr MwF INTERFACE [facility] [address] [facility] [address], [place], [address], 06/17/2024 09:14:51 Result Notes None recorded. Problems Name Problem SNOMED Code Status Onset Date Resolution Date Notes Provider Name and Address Organization Details Recorded Time No complaints [id number] Active Status : 'A'; Not Available [facility] 09:15:23 Problem Notes None recorded. Procedures Surgical History None recorded. Imaging Results Imaging Date Name Status LastModified by Organiz ation Details LastModified Time 11/08/2023 XR, ankle, 3 or more view completed INTERFACE [facility] [address], [place], [address], 11/08/2023 08:53:53 11/08/2023 XR, ankle, 3 or more view completed INTERFACE [facility] [address], [place], [address], 11/08/2023 08:53:55 11/22/2023 XR, foot, 3 or more view completed INTERFACE [facility] [address], [place], [address], 11/22/2023 13:46:07 11/22/2023 XR, foot, 3 or more view completed INTERFACE [facility] [address], [place], [address], 11/22/2023 13:46:09 11/22/2023 XR, ankle, 3 or more view completed INTERFACE [facility] [address], [place], [address], 11/22/2023 14:02:13 11/22/2023 XR, ankle, 3 or more view completed INTERFACE [facility] [address], [place], [address], 11/22/2023 14:02:15 06/26/2023 imaging/diag nostic result completed [email or web address] Information not available 01/11/2024 00:12:50 01/14/2024 XR, ankle, 3 or more view completed INTERFACE [facility] [address], [place], [address], 01/14/2024 10:09:02 01/14/2024 XR, ankle, 3 or more view completed INTERFACE [facility] [address], [place], [address], 01/14/2024 10:09:04 06/17/2024 XR, ankle, 3 or more view completed INTERFACE [facility] [address], [place], [address], 06/17/2024 09:14:49 06/17/2024 XR, ankle, 3 or more view completed INTERFACE [facility] [address] [facility] [address], [place], [address], 06/17/2024 09:14:51 Procedure Notes None recorded. Medical Equipment None Reported. Allergies No known drug allergies Medications Name Sig Start Date Stop Date Status Note LastModified by Organization Details LastModified Time cyclobenzaprin e 10 mg tablet TAKE 1 TABLET BY MOUTH AT BEDTIME NEEDED FOR MUSCLE SPASM active Not Available Not Available No t Available methocarbamol 500 mg tablet TAKE 1 TABLET BY MOUTH FOUR TIMES DAILY FOR 5 DAYS NEEDED FOR MUSCLE SPASM active Not Available [...] TAKE 1 TABLET BY MOUTH TWICE DAILY FOR 7 DAYS active Not Available Not Available No t Available chlorhexidine gluconate 0.12 % mouthwash RINSE WITH 15ML BY MOUTH FOR 30 SECONDS THEN SPIT USE TWICE DAILY AFTER BRUSHING AND FLOSSING active Not Available Not Available No t Available Vitals Date Recorded Body height Body mass index (BMI) Body weight Provider Name and Address Organization Details Last Updated DateTime 11/08/2023 165.1 cm 24.5 kg/m2 16591.08 g ELVIRA Castellano'PATRICIA [facility] 11/08/2023 08:38:49 Date Recorded Body height Body mass index (BMI) Body weight Provider Name and Address Organization Details Last Updated DateTime 11/22/2023 165.1 cm 24.5 kg/m2 95083.08 g MAYELIN IBANEZ [facility] 11/22/2023 13:39:48 Date Recorded Body height Body mass index (BMI) Body weight Provider Name and Address Organization Details Last Updated DateTime 01/14/2024 165.1 cm 24.5 kg/m2 11352.08 g Linda Hartmango [facility] 01/14/2024 10:02:22 Date Recorded Body height Body mass index (BMI) Body weight Provider Name and Address Organization Details Last Updated DateTime 06/17/2024 165.1 cm 24.5 kg/m2 06109.08 g MAYELIN IBANEZ [facility] 06/17/2024 09:03:15 Date Recorded Body height Body mass index (BMI) Body weight Provider Name and Address Organization Details Last Updated DateTime 07/15/2024 165.1 cm 24.5 kg/m2 05936.08 g MAYELIN IBANEZ [facility] 07/15/2024 08:55:39 Social History Question Answer Notes LastModified by Organizat ion Details LastModified Time Tobacco Smoking Status Never Smoker DARCYMARIANNE newberry [facility] 11/08/2023 08:39:09 What Is Your Level [...] Kidney/Bladder Problems N Anemia N Heart Attack (ID) N Cholesterol N Diabetes N Bleeding Disorder [...] SNOMED-CT Code Diagnosis ICD10 Code Diagnosis Note [id number] Brigette Rogers PA-C [facility] [address] [place] [address] 10/10/2023 09:52:04 11/07/2023 12:37:34 Pain of left ankle joint 7476295945 5080260 M25.572 Fracture o f distal end of fibula 665412890 S82.891A Closed fra cture of distal fibula 414376546 S82.832A [id number] Brigette Rogers PA-C [facility] [address] [place] [address] 11/08/2023 08:32:55 11/28/2023 09:34:15 Fracture of distal end of fibula 613912539 S82.891A [id number] Brigette Rogers PA-C [facility] [address] [place] [address] 11/22/2023 13:21:34 12/11/2023 15:11:09 Fracture of distal end of fibula 243775742 S82.891A [id number] Marleni Hodge PA-C [facility] [address] [place] [address] 01/14/2024 09:36:52 02/04/2024 11:41:00 Pain of left ankle joint 8434506586 4716162 M25.222 [id number] Brigette Rogers PA-C [facility] [address] [place] [address] 06/17/2024 08:54:42 06/25/2024 15:45:23 Ankle pain 642165715 M25.572 Fracture o f distal end of fibula 220681900 S82.891A [id number] Brigette Rogers PA-C [facility] [address] [place] [address] 07/15/2024 08:42:25 07/28/2024 10:57:17 Fracture of distal end of fibula 151708379 S82.891A Health Concerns Section Related Observation LastModified by Organization Detai ls LastModified Time None Recorded Concern Status LastModified by Organization Details LastModified Time None Recorded Advance Directives Directive None Recorded Payers Encounter Date Sequence Insurance Name Policy Number Policy Campos Covered Member ID Campos Member ID Guarantor Name 11/08/2023 1 [facility] (MEDICARE REPLACEMENT/A DVANTAGE - HMO) Qi Candelario [id number] Qi Candelario 11/08/2023 2 [place] [facility] Qi Candelario [id number] Qi Candelario 11/22/2023 1 [facility] (MEDICARE REPLACEMENT/A DVANTAGE - HMO) Qi Candelario [id number] Qi Candelario 11/22/2023 2 [place] [facility] Qi Candelario [id number] Qi Candelario 01/14/2024 1 [facility] (MEDICARE REPLACEMENT/A DVANTAGE - HMO) Qi Candelario [id number] Qi Candelario 01/14/2024 2 [place] [facility] Qi Candelario [id number] Qi Candelario 06/17/2024 1 [facility] (MEDICARE REPLACEMENT/A DVANTAGE - HMO) Qi Candelario [id number] Qi Candelario 06/17/2024 2 [place] [facility] Qi Candelario [id number] Qi Candelario 07/15/2024 1 [facility] (MEDICARE REPLACEMENT/A DVANTAGE - HMO) Qi Menardrd [id number] Qi Candelario 07/15/2024 2 [place] [facility] Qi Candelario [id number] Qi Candelario Notes Date Note Type Note Provider Name and Address Organization Details Recorded Time 11/08/2023 text/html I am seeing this patient under the supervision of Dr. John, who was available but who did not see the patient. HPI: Patient is a 73-year-old female presenting today in regards to left [...] much better. She was last seen by myself on 10/10/2023. Diagnosed with a distal fibula avulsion fracture versus ankle sprain. She was given prescriptions for an ankle brace and meloxicam at her last visit. Presents today for follow-up. She continues to have pain and swelling about the lateral aspect of the ankle. Denies any interval trauma. Denies any fevers, [...] possible small nondisplaced distal fibula avulsion fracture IMPRESSION: Left distal fibula avulsion fracture versus ankle sprain PLAN: Discussed the findings and situation with the patient today. Recommended continued conservative treatment for this. Unfortunately she had to leave as soon as she got here although she did get x-rays today. She will follow-up in a few weeks and we will review those x-rays further and discussed. Call with questions Brigette Rogers PA-C [address] [facility] [address], [place], [address], [facility] [place] [facility] 11/08/2023 08:58:31 11/22/2023 text/html I am seeing this patient under the supervision of Dr. John, who was available but who did not see the patient. HPI: Patient is a 73-year-old female presenting today in regards to left [...] much better. She was last seen by myself on 10/10/2023. Diagnosed with a distal fibula avulsion fracture versus ankle sprain. She was given prescriptions for an ankle brace and meloxicam at her last visit. Presents today for follow-up. She continues to have pain and swelling about the lateral aspect of the ankle. Denies any interval trauma. Denies any fevers, [...] possible small nondisplaced distal fibula avulsion fracture IMPRESSION: Left distal fibula avulsion fracture versus ankle sprain PLAN: Discussed the findings and situation with the patient today. Recommended continued conservative treatment for this. She was given a prescription for physical therapy. She will follow-up in 6 weeks for recheck. Call with questions or concerns. Brigette Rogers PA-C [address] [place] [address] [address], [place], [address], [facility] [place] [facility] 11/22/2023 14:44:33 01/14/2024 text/html I am seeing this patient under the supervision of Dr. John, who was available but who did not see the patient. HPI: Patient is a 73-year-old female presenting today in regards to left [...] much better. She was last seen by myself on 10/10/2023. Diagnosed with a distal fibula avulsion fracture versus ankle sprain. She was given prescriptions for an ankle brace and meloxicam at her last visit. Presents today for follow-up. She continues to have pain and swelling about the lateral aspect of the ankle. Denies any interval trauma. Denies any fevers, chills, or paresthesias. Clinical update: 74-year-old female presents to clinic today for reevaluation. She is previously diagnosed with a left distal fibular avulsion fracture and lateral ankle sprain. She has been undergoing physical therapy and the doing well. She denies interval trauma. She just notices that with certain activities after long periods of time she notices some pain and continued swelling. She is not taking any medications for this. Denies numbness and tingling. PFMS, Meds and ROS reviewed, updated and signed by me, and is located in the patient's chart.PHYSICAL EXAMINATION: The patient is well appearing and in no apparent distress. Alert and oriented x 3. Examination of her left ankle reveals Traceedema about the lateral ankle with no evidence of erythema or warmth. Minimally tender to palpation over the tip of the fibula and ATFL. Nontender to palpation of elsewhere about the foot or ankle. Significant improvement to range of motion to include bilateral 5 strength to plantar flexion, dorsiflexion, inversion and eversion without much discomfort. TCalf soft, nontender. Sensation intact light touch in the left lower extremity. RADIOLOGY: X-rays were ordered, obtained, and reviewed today in our office. 3 views of the left ankle reveal possible small nondisplaced distal fibula avulsion fracture IMPRESSION: Left distal fibula avulsion fracture versus ankle sprain PLAN: Discussed the findings and situation with the patient today. I recommend continued therapy to finish her prescription. I also recommend continued conservative management. Based upon how she is doing now I do believe that she may follow up as needed in regards to her complaints. She will call if she needs additional therapy after she is done with this prescription. I believe she may transition to activities as tolerated. However she is recommended to a close attention to her symptoms, if they persist, linger or plateau in nature she is encouraged to call the office for reevaluation. We did discuss the role of nonunions/expectati ons after an injury with swelling which she understands. All questions and concerns are answered and addressed. Please cc her attorneyFor update. Eduardo Hodge PA-C [address], [place], [address], [facility] [place] [facility] 01/14/2024 10:38:53 06/17/2024 text/html I am seeing this patient [...] questions or concerns. Brigette Rogers PA-C [address] [facility] [address], [place], [address], [place] [facility] [place] [facility] 06/17/2024 12:01:31 07/15/2024 text/html I am seeing this patient under the supervision of Dr. John, who was available but who did not see the patient. HPI: Patient is a 74-year-old female presenting today in regards to left [...] much better. She was last seen by myself on 06/17/2024. Presents today for follow-up. She continues to have pain and swelling about the lateral aspect of the ankle. She completed a course of physical therapy. She has been working on physical therapy exercises on her own at home. She continues to have pain with prolonged walking and standing. She continues to wear her brace for comfort. Denies any interval trauma. Denies any fevers, [...] light touch in the left lower extremity. IMPRESSION: Left distal fibula avulsion fracture versus ankle sprain PLAN: Discussed the findings and situation with the patient today. We discussed continued conservative treatment versus surgical intervention. Patient would like to remain conservative for now which is appropriate. She will continue with her ankle brace. We discussed at some point she may reach maximum medical improvement from her injury. She will follow-up in 2 months when she will be 1 year out from her injury we can discuss potential maximal medical improvement at that time. We will obtain new x-rays of her ankle at that time as well. Brigette Rogers PA-C [address] [facility] [address], [place], [address], [facility] [place] [facility] 07/15/2024 10:46:13 OBGyn Episode No OBEpisode recorded.
--- OUTSIDE RECORDS SUMMARY | 2024-08-11 10:12 | XMS_ITS | Encounter Summary ---
Author Organization [employer] Address [address] [facility] [address] [place] [address] Care Team Providers Care Tunnel Elastic Operator Chainstitch Name Role Phone Arlene Cronin MD Primary Care Provider [phone] Encounter Details Date Type Department Care Team (Late st Contact Info) Description 06/25/2024 Orders Only [facility] [address] [place], [place] [id number] Arlene Cronin MD [address] [place], [place] [id number] Dyslipidemia (Primary Dx) Social History Tobacco Use Types [...] of this encounter Plan of Treatment Scheduled Orders Name Type Priority Associated Diagnoses Orde r Schedule Lipid Panel with Reflex to Direct LDL Lab Routine Dyslipidemia Expected: 06/25/2024 (Approximate), Expires: 06/25/2025 documented as of this encounter Visit Diagnoses Diagnosis Dyslipidemia- Primary Other and unspecified hyperlipidemia documented in this encounter Additional Health Concerns Assessment Noted Time PHQ-9 Depression Total Score: 0 06/24/19 25 10:16 AM EST documented as of this encounter Care Teams Tunnel Elastic Operator Chainstitch Relationship Specialty Start Date End Date Arlene Cronin MD [address] [place] [address] PCP - General Family Medicine 05/13/18 documented as of this encounter
== END 2024-08-11 09:12 | disposition home or self-care (01) ==
LOC: HO.MAMMO 09:11
PROVIDERS: PCP Family Medicine; Visit Provider Family Medicine
DX: Z13.820 Encounter for screening for osteoporosis (principal); Z78.0 Asymptomatic menopausal state
CPT/HCPCS: 77080

== ENCOUNTER → 2024-08-11 09:15 | Outpatient (BNV) | payer OTHER, SELFPAY | PROVIDERS: PCP Family Medicine; Visit Provider Radiology Diagnostic Radiology | DX: E28.39 Other primary ovarian failure (principal) | CPT/HCPCS: 77080 ==

== ENCOUNTER 2024-08-14 08:01 | Day surgery (SDC) | payer OTHER, SELFPAY ==
[2024-08-12 12:13] VITALS: BMI 24.8
--- NOTE | 2024-08-13 09:36 | HO.ANESPROP2 ---
Documented by User: Maribel Hanna NP 08/13/24 09:37 HPI - Anesthesia Eval Consult details Narrative: 74yo F for Colonoscopy [facility] Past Medical History Medical History (Updated 08/12/24 @ 12:09 by Merlene Barrett RN) Arthritis Back pain HTN (hypertension) Tubular adenoma Colon polyps Surgical History Surgical History (Updated 08/12/24 @ 12:09 by Merlene Barrett RN) H/O colonoscopy Social History Social History Alcohol intake: never Patient Tobacco Use Status: Never used Tobacco Have you been hit, kicked, punched, or otherwise hurt by someone within the past year? If so, by whom?: No Are you DNR?: No Advance Directives: No Advance Directives Information Provided: Yes Meds Allergies Allergy/AdvReac Type Severity Reaction Status Date / Time No Known Allergies Allergy Verified 10/06/23 00:18 Home Medications ?Medication ?Instructions ?Recorded ?Confirmed ?Last Taken ?Type hydrochlorothiazide 25 mg tablet 25 mg PO DAILY 08/12/24 08/12/24 08/12/24 History Exam Height,Weight and Vital Signs: Height 5 ft 5 in Weight 67.585 kg Assessment and Plan Assessment Anesthesia Assessment: Chart Reviewed Documented by User: Galilea Saleh MD 08/14/24 08:27 [facility] Past Medical History Medical History (Updated 08/12/24 @ 12:09 by Merlene Barrett RN) Arthritis Back pain HTN (hypertension) Tubular adenoma Colon polyps Family History Family history of problems with anesthesia: No Surgical History Surgical History (Updated 08/12/24 @ 12:09 by Merlene Barrett RN) H/O colonoscopy History of Problems with Anesthesia: No Social History Social History Alcohol intake: never Patient Tobacco Use Status: Never used Tobacco Have you been hit, kicked, punched, or otherwise hurt by someone within the past year? If so, by whom?: No Are you DNR?: No Advance Directives: No Advance Directives Information Provided: Yes Meds Allergies Allergy/AdvReac Type Severity Reaction Status Date / Time No Known Allergies Allergy Verified 10/06/23 00:18 Home Medications ?Medication ?Instructions ?Recorded ?Confirmed ?Last Taken ?Type hydrochlorothiazide 25 mg tablet 25 mg PO DAILY 08/12/24 08/12/24 08/12/24 History Exam Airway Mallampati Class: II TM Dist: >3cm Neck ROM: Full Partial: Upper and Lower Heart: rrr Lungs: cta Assessment and Plan Assessment Anesthesia Assessment: Anesthesia Plan Discussed Final Anesthetic Review Family History of Problems with Anesthesia: No History of Problems with Anesthesia: No NPO: Yes ASA Class: II Final Preanesthetic Review: No Changes in Pt Med Stat, Meds/Allgs Chart Reviewed and Consent Obtained/Reviewed Patient Risk: Low Procedure Risk: Low Anesthetic Plan Anesthetic Plan: MAC: Disposition: Standard PACU
[2024-08-14 08:12] VITALS: BP 127/88; PULSE 91; RESP 20; TEMP 36.4; O2SAT 98; BMI 24.3
[2024-08-14] MEDS: Lactated Ringers 1,000 ML 100 ML IVCONT (08:34)
--- NOTE | 2024-08-14 08:44 | MHC.SHP ---
Pre-Procedural Eval Section A - 24 Hr Update-Section A only Date of Service: 08/14/24 Section B - Complete if H&P > 30 days Chief Complaint: Encounter for screening for malignant neoplasm of Details of Present Illness: see H&P no changes Relevant Family History (Specify if Yes): No Relevant Social History: None Present Medications: see Short Stay Collaborative assessment Medical History: No relevant PMH History of Previous Operations: No relevant previous surgery Allergies: Allergies Allergy/AdvReac Type Severity Reaction Status Date / Time No Known Allergies Allergy Verified 10/06/23 00:18 Plan I have reviewed the history and physical and performed a pertinent physical examination on my patient. No changes have occurred unless specified. Time Spent With Patient Time: Total time managing care of this patient today ____ minutes.
[2024-08-14 09:21] VITALS: BP 107/71; PULSE 78; RESP 14; TEMP 36.7; O2SAT 98
--- NOTE | 2024-08-14 09:23 | P.BOP_ITS ---
Brief Operative Note Date of Service: 08/14/24 Pre-op diagnosis: screening Post-op diagnosis: same Procedure: colonoscopy Surgeon: Romel Reynolds MD Anesthesia: MAC Was an [employer] Machine Operator used for this Procedure?: No Estimated blood loss (mL): 2 Pathology: other Condition: stable Disposition: PACU
[2024-08-14 09:36] VITALS: BP 130/75; PULSE 69; RESP 16; TEMP 36.7; O2SAT 98
--- NOTE | 2024-08-14 13:33 | OP_ITS ---
DATE OF SERVICE: 08/14/2024 SURGEON: Romel Reyonlds MD INDICATIONS: Colon cancer screening. PREOPERATIVE DIAGNOSIS: POSTOPERATIVE DIAGNOSIS: PROCEDURE PERFORMED: Colonoscopy to the cecum with biopsy. ESTIMATED BLOOD LOSS: COMPLICATIONS: ANESTHESIA: Monitored anesthesia care. ASSISTANTS: SPECIMENS: DESCRIPTION OF PROCEDURE: History and physical performed. The risks and benefits of the procedure were explained to the patient. Informed consent was obtained. The patient was placed in left lateral decubitus position. A digital rectal exam was performed and was found to be normal. The Olympus pediatric video colonoscope was introduced into the rectum and advanced to the cecum. The cecum was identified by transillumination, palpation, and identification of ileocecal valve. Examination was performed and the scope was removed. She tolerated the procedure well and was taken to the recovery area in stable condition. FINDINGS: The terminal ileum was not examined. There was some liquid stool left, which was washed and suctioned. A single polyp measuring less than 5 mm was identified at 25 cm and removed with biopsy forceps. It was biopsied for diverticulosis. Retroflexed examination showed inflamed internal and external hemorrhoids. IMPRESSION: Colon polyp. RECOMMENDATIONS: Follow up the biopsy results. MD MASHA Hassan/MADELEINE / [id number]
== END 2024-08-14 10:07 | disposition home or self-care (01) ==
PROVIDERS: PCP Family Medicine; Visit Provider Internal Medicine Gastroenterology
PROC: 0DJD8ZZ Inspection of Lower Intestinal Tract, Via Natural or Artificial Opening Endoscopic (ICD-10-PCS; CPT 45378; principal; 2024-08-14 09:10)
DX: Z12.11 Encounter for screening for malignant neoplasm of colon (principal); D12.5 Benign neoplasm of sigmoid colon; Z86.0100 Personal history of colon polyps, unspecified; I10 Essential (primary) hypertension
CPT/HCPCS: 45380; 88305; J2003; J2704